=== PATIENT | female | born 1995 ===

== ENCOUNTER 2022-05-10 12:38 | Outpatient (RCR) | payer OTHER, SELFPAY ==
[2022-05-10] MEDS: RHO(D) IMMUNE GLOBULIN 300 MCG/2 ML SYRINGE IM (13:24)
== END 2022-08-07 23:59 | disposition home or self-care (01) ==
LOC: ANHLAB 12:38
PROVIDERS: Visit Provider Obstetrics & Gynecology
DX: Z29.13 Encounter for prophylactic Rho(D) immune globulin (principal); O36.0190 Maternal care for anti-D [Rh] antibodies, unspecified trimester, not applicable or unspecified; Z3A.00 Weeks of gestation of pregnancy not specified
CPT/HCPCS: 36415; 85461; 86850; 86900; 86901; 90384; 96372; J2790

== ENCOUNTER 2022-07-04 17:51 | Inpatient (IN) | payer OTHER, SELFPAY ==
[2022-07-04] VITALS (19 sets, daily range): BP systolic 95–120; BP diastolic 42–68; PULSE 75–100; RESP 16; TEMP 36.3–36.4; O2SAT 98–99; BMI 34.0
--- NOTE | 2022-07-04 18:36 | LDADM ---
This patient, Gume Gaytan, was admitted to Labor/Delivery/Recovery 103 on 07/04/22 at 17:51. Plans for labor, pain management and were discussed with patient. Patient/family oriented to hospital policies and general routines including ID bracelet, bed and alarms, visiting hours, pain management, procedures, bathroom and other care routines, personal items, smoking policy, room service/diet and guest tray routines, security routines, and visiting hours. Patient/Family are encouraged to report perceived risks to care and to ask questions if they do not understand what they are told or what they should do. See OBIX for further documentation.
[2022-07-04 22:03] LABS: Basophils Absolute Auto 0.1 K/mm3 (0.0-0.1); Basophils Percent Auto 0.6 % (0.2-1.2); Eosinophils Absolute Auto 0.1 K/mm3 (0-0.3); Eosinophils Percent Auto 0.6 % (0-4.4); Hematocrit 32.5 % (37.0-47.0); Hemoglobin 10.6 g/dL (12.0-15.0); Immature Granulocyte Absolute 0.04 K/mm3 (0.00-0.031); Immature Granulocyte Percent A 0.5 % (0-0.5); Lymphocytes Percent Auto 47.4 % (18.3-44.2); Mean Corpuscular HGB Conc 32.6 g/dl (32-36); Mean Corpuscular Hemoglobin 28.6 pg (26-34); Mean Corpuscular Volume 87.6 fl (80-100); Mean Platelet Volume 9.6 fl (7.4-10.4); Monocytes Absolute Auto 0.4 K/mm3 (0.1-0.6); Monocytes Percent Auto 5.3 % (2.6-8.5); Neutrophils Absolute Auto 3.8 K/mm3 (1.3-6.7); Neutrophils Percent Auto 45.6 % (45.5-73.1); Platelet Count Result 150 k/mm3 (150-375); Red Blood Count 3.71 M/mm3 (4.2-5.4); Red Cell Distribution Width 13.4 % (11.5-14.5); White Blood Count 8.2 K/mm3 (4.5-10.0)
[2022-07-04 22:35] LABS: Atypical Lymphocytes Present; Platelet Estimate Adequate (Adequate); Schistocytes None Seen (NORMAL)
[2022-07-05] VITALS (256 sets, daily range): BP systolic 56–144; BP diastolic 27–89; PULSE 63–204; RESP 12–22; TEMP 36.3–37.3; O2SAT 97–100
--- NOTE | 2022-07-05 06:08 | PM.IMHP ---
H&P: HPI History of Present Illness Date/Time: 07/05/22 06:08 Chief Complaint: Postdates for induction Narrative: this is a 27-year-old 3 para 2 2 previous C-sections cysts on the attempted vaginal delivery after . She is 40 and 5 7th weeks gestation. Her cervix is unfavorable the marked increase risks have been explained to the patient in full and she and her burned her wish to proceed with induction PMFSH Family History Family History Grandparent Uterine cancer Mother Asthma Social History Social History Smoking status: Never smoker Substance use: never Lack of Transportation: No Lack of Food: Never True Current Housing: I Have Housing Concerned About Future Housing: No Difficulty Paying Gas/Electric Bills: No Difficulty Paying for Meds: No Currently Unemployed: No Education: Bachelor's Degree Difficulty w/ Childcare or Family Care: No Spiritual care concerns: No Meds Home Medications and Allergies Allergies Allergy/AdvReac Type Severity Reaction Status Date / Time No Known Allergies Allergy Verified 05/31/22 13:27 Vital Signs Vital Signs - 24 hr 07/04/22 18:35 07/04/22 19:02 07/04/22 19:15 Temperature 97.4 F L Pulse Rate 93 85 Respiratory Rate 16 Blood Pressure 120/68 117/60 Pulse Oximetry 98 Oxygen Delivery Room Air 07/04/22 19:20 07/04/22 19:25 07/04/22 19:30 Temperature Pulse Rate Respiratory Rate Blood Pressure Pulse Oximetry 98 98 98 Oxygen Delivery 07/04/22 19:35 07/04/22 19:40 07/04/22 19:45 Temperature Pulse Rate Respiratory Rate Blood Pressure Pulse Oximetry 98 98 99 Oxygen Delivery 07/04/22 19:50 07/04/22 19:55 07/04/22 20:00 Temperature Pulse Rate Respiratory Rate Blood Pressure Pulse Oximetry 99 99 99 Oxygen Delivery 07/04/22 20:05 07/04/22 20:10 07/04/22 20:15 Temperature Pulse Rate Respiratory Rate Blood Pressure Pulse Oximetry 99 98 98 Oxygen Delivery 07/04/22 20:20 07/04/22 20:25 07/04/22 20:30 Temperature 97.5 F L Pulse Rate 90 Respiratory Rate 16 Blood Pressure 102/42 L Pulse Oximetry 99 99 99 Oxygen Delivery 07/04/22 20:31 07/04/22 20:34 07/05/22 00:31 Temperature Pulse Rate 88 81 Respiratory Rate Blood Pressure 95/47 L 118/56 L Pulse Oximetry 98 Oxygen Delivery 07/05/22 00:32 07/05/22 00:36 07/05/22 00:41 Temperature 97.4 F L Pulse Rate 78 Respiratory Rate 12 Blood Pressure 113/70 Pulse Oximetry 98 98 Oxygen Delivery 07/05/22 00:46 07/05/22 00:51 07/05/22 00:56 Temperature Pulse Rate Respiratory Rate Blood Pressure Pulse Oximetry 99 98 99 Oxygen Delivery 07/05/22 05:09 07/05/22 05:10 07/05/22 05:11 Temperature 97.3 F L Pulse Rate 68 Respiratory Rate 12 Blood Pressure 123/61 Pulse Oximetry 100 100 Oxygen Delivery 07/05/22 05:16 07/05/22 05:21 07/05/22 05:26 Temperature Pulse Rate Respiratory Rate Blood Pressure Pulse Oximetry 98 98 99 Oxygen Delivery 07/05/22 05:31 07/05/22 05:36 07/05/22 05:41 Temperature Pulse Rate Respiratory Rate Blood Pressure Pulse Oximetry 98 98 99 Oxygen Delivery 07/05/22 05:46 07/05/22 05:51 07/05/22 05:56 Temperature Pulse Rate Respiratory Rate Blood Pressure Pulse Oximetry 98 99 99 Oxygen Delivery 07/05/22 06:01 07/05/22 06:06 Temperature Pulse Rate Respiratory Rate Blood Pressure Pulse Oximetry 100 100 Oxygen Delivery Exam Const: General: cooperative, healthy appearing, comfortable and overweight Orientation/consciousness: oriented to person, oriented to place and oriented to time HENMT: Head: normal to inspection Resp: Effort & Inspection: normal respiratory effort Cardio
[2022-07-05] MEDS: AMPICILLIN 2 GM/NS 100 ML 2 GM/100 ML BAG IVPB (06:29)
[2022-07-05] MEDS: OXYTOCIN 30 UNITS/NS 500 ML 30 UNITS/500 ML BAG IV CONT (06:29)
[2022-07-05] MEDS: LACTATED RINGERS 1,000 ML 125 ML IV CONT ×4 (06:29→14:41)
[2022-07-05] MEDS: AMPICILLIN 1 GM/NS 50 ML 1 GM/50 ML BAG IVPB ×2 (10:39→14:41)
[2022-07-05] MEDS: ONDANSETRON INJ 4 MG/2 ML VIAL IV PUSH (11:28)
--- NOTE | 2022-07-05 12:04 | WPDANESEPP ---
Anes - Eval Pre Procedure Procedure: Labor Epidural Date/Time: 07/05/22 12:04 Surgeon: Brannon Preop Diagnosis: Labor Pain Pre Op Diagnosis: Induction of Labor Patient Data Age: 27 Gender: F Height: 1.63 m Weight: 90 kg Last Vital Signs Temp 37.1 C 07/05/22 06:30 Pulse 84 07/05/22 12:03 Resp 12 07/05/22 05:10 BP 144/58 H 07/05/22 12:03 Pulse Ox 99 07/05/22 12:04 O2 Del Method Room Air 07/04/22 18:35 Allergies Allergy/AdvReac Type Severity Reaction Status Date / Time No Known Allergies Allergy Verified 05/31/22 13:27 Laboratory Tests 07/04/22 07/04/22 07/04/22 18:52 18:52 21:55 WBC 8.2 K/mm3 K/mm3 (4.5-10.0) RBC 3.71 M/mm3 L M/mm3 (4.2-5.4) Hgb 10.6 g/dL L g/dL (12.0-15.0) Hct 32.5 % L % (37.0-47.0) MCV 87.6 fl fl (80-100) MCH 28.6 pg pg (26-34) MCHC 32.6 g/dl g/dl (32-36) RDW 13.4 % % (11.5-14.5) Plt Count 150 k/mm3 k/mm3 (150-375) MPV 9.6 fl fl (7.4-10.4) Immature Gran % (Auto) 0.5 % % (0-0.5) Neut % (Auto) 45.6 % % (45.5-73.1) Lymph % (Auto) 47.4 % H % (18.3-44.2) [place] % (Auto) 5.3 % % (2.6-8.5) Eos % (Auto) 0.6 % % (0-4.4) Baso % (Auto) 0.6 % % (0.2-1.2) Lymph # (Auto) 3.90 K/mm3 H K/mm3 (0.9-3.2) [place] # (Auto) 0.4 K/mm3 K/mm3 (0.1-0.6) Eos # (Auto) 0.1 K/mm3 K/mm3 (0-0.3) Baso # (Auto) 0.1 K/mm3 K/mm3 (0.0-0.1) Abs Immat Gran (auto) 0.04 K/mm3 H K/mm3 (0.00-0.031) Absolute Neuts (auto) 3.8 K/mm3 K/mm3 (1.3-6.7) Absolute Nucleated RBC 0.0 K/mm3 K/mm3 (0.0-0.012) Nucleated RBC % 0.0 % % (0.0-0.2) Atypical Lymphocytes Present Platelet Estimate Adequate (Adequate) Schistocytes None seen (NORMAL) RPR Pending Blood Type B Negative Antibody Screen Positive Antibody Identification Inconclusive Antigen Identification Cancelled CE, IgG Interpret Not Performed CE, Poly Interpret Negative CE, Complement Interp Not Performed : gestational age (, JEANNINE 06/30/22) Patient hx anesthesia problems: none Family hx anesthesia problems: none Results Review: All pre-operative results and documents have been reviewed as part of the pre-operative evaluation. [facility] Family History Family History Grandparent Uterine cancer Mother Asthma Social History Social History Smoking status: Never smoker Substance use: never Lack of Transportation: No Lack of Food: Never True Current Housing: I Have Housing Concerned About Future Housing: No Difficulty Paying Gas/Electric Bills: No Difficulty Paying for Meds: No Currently Unemployed: No Education: Bachelor's Degree Difficulty w/ Childcare or Family Care: No Spiritual care concerns: No Exam Day of Procedure 07/05/22 12:04 Patient weight: normal Heart: regular rate and rhythm Lungs: normal air movement Airway: Mallampati scale class II Neurological: alert and oriented Other findings: 2 previous c sections (furthest dilated was 7cm)
--- NOTE | 2022-07-05 12:39 | PM.OBPNLAB ---
Pain Control Date/time seen: 07/05/22 12:39 Pain control: tolerating well and epidural Pelvic Exam Dilation (cm): 2 Effacement (%): 80 station: -1 Amniotic membrane status: Leaking Comments: iupc placed
[2022-07-05] MEDS: SODIUM CHLORIDE 0.9% IV 300 ML 600 ML I-UTERINE (13:19)
--- NOTE | 2022-07-05 15:20 | PM.OBPNLAB ---
Pain Control Date/time seen: 07/05/22 15:20 Pain control: tolerating well and epidural Pelvic Exam Dilation (cm): 2 Effacement (%): 80 station: -1 Amniotic membrane status: Leaking Comments: no change in cervix. fhts now better. offered section but still unwiling. continue monitoring closely
--- NOTE | 2022-07-05 16:55 | PM.OBPNLAB ---
Pain Control Date/time seen: 07/05/22 16:55 I just assumed call for Dr. Jignesh Baptiste. He and I have reviewed the patient's case and condition several times over the course of the day today. Pain under good control. NST: Category 2 TOCO: contractions every 2-5 min ABD soft, nontender, gravid EXT nontender A: IUP at term. Prior x 2. Abnormal heart rate tracing remote from delivery. P: Offered repeat . She understands risks of surgery to include risks of anesthesia, risks of pain, infection, bleeding, blood products, thromboembolic phenomena and damage to adjacent structures such as bowel, bladder, ureters, blood vessels and nerves. She understands all these risks and elects to proceed with surgery. Pelvic Exam Dilation (cm): 2 Effacement (%): 80 station: -1 Amniotic membrane status: Leaking
[2022-07-05] MEDS: ceFAZolin 2 GM/D5W 50 ML 2 GM/50 ML BAG IVPB (17:10)
--- NOTE | 2022-07-05 17:58 | PM.OBPRVD ---
OB - Delivery Note Procedure Delivery date: 07/05/22 Procedure: Procedures Operation Date: 07/05/22 17:00 <No data on this case meets the specified criteria> Repeat low transverse delivery Events: Positive Group B Strep (GBS) and Previous Delivery Intrapartal Events: Arrest of Dilation and Non-Reassuring Status Induction method: Per Pitocin Protocol Delivery augmentation: Rupture of Membranes and Pitocin Delivery monitor: External FHT, External Uterine and Internal Uterine Route of delivery: Specimen: Yes (cord blood, placenta) Quantitative Blood Loss (ml): 835 Anesthesia type: Epidural Disposition: PACU Complications: None Narrative: The patient was taken to the operating room where she was prepared and draped in the usual sterile fashion in dorsal supine position with a leftward tilt. She received cefazolin and azithromycin preoperatively. Spinal anesthesia was found to be adequate. A Pfannenstiel skin incision was made along the previous scar line and was carried through to the underlying layer of the fascia. The fascia was incised in the midline and the incision was extended laterally. The fascia was dissected free of the underlying rectus muscles. The rectus muscles were in the midline. The peritoneum was identified, tented up and entered sharply. The peritoneal incision was extended superiorly and inferiorly with good visualization of the bladder. The bladder blade was placed. The vesicouterine peritoneum was identified, tented up and entered sharply. The incision was extended laterally and the bladder flap was developed. The bladder blade was replaced. The uterus was then incised sharply in a transverse fashion along the lower uterine segment. The incision was extended laterally. The infant's head was delivered atraumatically to the sterile field, followed by the body. The nose and mouth were bulb suctioned. After a delay, the cord was clamped and cut. The infant was handed off the field. Cord blood was collected. The placenta was removed manually and was passed off the field. The uterus was exteriorized and cleared of all clots and debris. The uterine incision was reapproximated using 0 Monocryl in a running, locked fashion. Excellent hemostasis resulted as did excellent reapproximation of the normal anatomy. The uterus was returned the abdomen. The pelvis was irrigated copiously with warmed normal saline. Rigorous hemostasis was assured. The fascial layer was reapproximated using 0 Vicryl in a running fashion. The skin was closed with a running, subcuticular stitch of 4 0 Vicryl. Dermaflex was applied externally. Sponge, lap, needle and instrument counts were correct. The patient was taken to the recovery room in stable condition. The went to the nursery in stable condition. I was present and scrubbed the entire procedure. Baby Date of : 07/05/22 Time of : 17:29 Weeks of gestation at delivery: 40 Infant gender: Male Weight (pounds): 7 Weight (ounces): 4 presentation: vertex Placenta delivery description: Manual Removal and Normal Configuration Cord Vessel Description: 3 Vessels and Delayed Cord Clamping score one minute: 8 score five minutes: 9
--- NOTE | 2022-07-05 18:01 | P.DS_ITS ---
DS: Admitting Diagnosis Discharge Date 07/08/22 Admitting Diagnosis IUP at 40 5/7 weeks Prior x 2 GBS colonization DS: Discharge Diagnosis Discharge Diagnosis (1) Term : Code(s): Z34.90 - Encounter for supervision of normal , unspecified, unspecified trimester Status: Acute (2) delivery delivered: Code(s): O82 - Encounter for delivery without indication Status: Acute (3) GBS (group B Streptococcus carrier), +RV culture, currently : Code(s): O99.820 - Streptococcus B carrier state complicating Status: Acute OB - DS: Summary OB Procedures : NST OB Procedures Intrapartum: OB Procedures: : None Peripartum Data Procedures: Procedures Operation Date: 07/05/22 17:00 <No data on this case meets the specified criteria> Repeat LTCS Time Spent with Patient Time attestation: Total time spent providing and/or coordinating discharge services: DS: Data Data Completed and Pending Labs on day of discharge: Labs from last 24 hours 07/04/22 07/04/22 07/04/22 21:55 18:52 18:52 WBC 8.2 RBC 3.71 L Hgb 10.6 L Hct 32.5 L MCV 87.6 MCH 28.6 MCHC 32.6 RDW 13.4 Plt Count 150 MPV 9.6 Immature Gran % (Auto) 0.5 Neut % (Auto) 45.6 Lymph % (Auto) 47.4 H [place] % (Auto) 5.3 Eos % (Auto) 0.6 Baso % (Auto) 0.6 Lymph # (Auto) 3.90 H [place] # (Auto) 0.4 Eos # (Auto) 0.1 Baso # (Auto) 0.1 Abs Immat Gran (auto) 0.04 H Absolute Neuts (auto) 3.8 Absolute Nucleated RBC 0.0 Nucleated RBC % 0.0 Atypical Lymphocytes Present Platelet Estimate Adequate Schistocytes None seen RPR Pending Blood Type B Negative Antibody Screen Positive Antibody Identification Inconclusive Antigen Identification Cancelled CE, IgG Interpret Not Performed CE, Poly Interpret Negative CE, Complement Interp Not Performed Discharge Plan Discharge Attending physician on discharge: Pavel Alvarenga Discharging Clinician: Marcelino Gilliam Patient Disposition: Home, Self-Care Activity: may shower, may drive after 2 weeks and pelvic rest Diet: regular Wound Care Instructions: incision open to air Discharge Instructions: Call or return if temperature above 100.4? F, increased abdominal pain, increased vaginal bleeding or any new problems. Stand Alone Forms: General Discharge Information Follow-up/Referrals: Pavel Alvarenga MD [Physician] - 4 Weeks Discharge Medications: New ibuprofen 600 mg tablet 600 mg PO Q6H PRN (Reason: cramps) Qty: 30 0RF hydrocodone-acetaminophen 5-325 mg tablet 1 - 2 tablet PO Q6H PRN (Reason: pain) Qty: 30 0RF ferrous sulfate 325 mg (65 mg iron) tablet 325 mg PO DAILY Qty: 30 0RF Date of admission: 07/04/22 17:51 Primary Care Provider: UNKNOWN,DOCTOR Admitting Provider: Pavel Alvarenga Attending physician on admission: Pavel Alvarenga Condition: Stable
[2022-07-05] MEDS: KETOROLAC 30 MG/ML VIAL (*BKC) IV PUSH (18:56)
--- NOTE | 2022-07-05 20:29 | OBPPTRN ---
Patient transferred to post room #282 via ( stretcher ). Support person present. Oriented to unit, room, information board, rooming in, admission packet and security measures. Patient verbalizes understanding.
[2022-07-05] MEDS: diphenhydrAMINE HCl INJ 50 MG/ML VIAL 25 MG IV PUSH (21:25)
[2022-07-06 00:45] VITALS: BP 108/61; PULSE 85; RESP 18; TEMP 37.2; O2SAT 97
[2022-07-06 04:30] VITALS: BP 100/56; PULSE 86; RESP 18; TEMP 37.2; O2SAT 98
[2022-07-06 04:54] LABS: Basophils Absolute Auto 0.1 K/mm3 (0.0-0.1); Basophils Percent Auto 0.6 % (0.2-1.2); Eosinophils Percent Auto 0.2 % (0-4.4); Hematocrit 27.7 % (37.0-47.0); Hemoglobin 8.9 g/dL (12.0-15.0); Immature Granulocyte Absolute 0.03 K/mm3 (0.00-0.031); Immature Granulocyte Percent A 0.3 % (0-0.5); Lymphocytes Absolute Auto 3.23 K/mm3 (0.9-3.2); Lymphocytes Percent Auto 33.9 % (18.3-44.2); Mean Corpuscular HGB Conc 32.1 g/dl (32-36); Mean Corpuscular Hemoglobin 28.6 pg (26-34); Mean Corpuscular Volume 89.1 fl (80-100); Mean Platelet Volume 9.5 fl (7.4-10.4); Monocytes Absolute Auto 0.5 K/mm3 (0.1-0.6); Neutrophils Absolute Auto 5.7 K/mm3 (1.3-6.7); Platelet Count Result 108 k/mm3 (150-375); Red Blood Count 3.11 M/mm3 (4.2-5.4); Red Cell Distribution Width 13.6 % (11.5-14.5); White Blood Count 9.5 K/mm3 (4.5-10.0)
[2022-07-06] MEDS: IBUPROFEN 600 MG TABLET PO ×2 (04:56→15:03)
[2022-07-06] MEDS: HYDROcodone/acetaminophen (*CRX) 5-325 MG TABLET 1 TAB PO ×4 (04:56→19:00)
[2022-07-06 05:30] LABS: Atypical Lymphocytes Present
[2022-07-06 05:31] LABS: Platelet Estimate Adequate (Adequate)
[2022-07-06 08:44] VITALS: BP 100/53; PULSE 76; RESP 18; TEMP 36.8; O2SAT 98
[2022-07-06] MEDS: DOCUSATE SODIUM 100 MG CAPSULE PO ×2 (08:44→17:36)
[2022-07-06] MEDS: POLYSACCHARIDE IRON COMPLEX 150 MG CAPSULE PO ×2 (08:44→17:35)
[2022-07-06] MEDS: MULTIVIT/MIN/PREN/FOL AC/IRON TABLET 1 TAB PO (08:44)
--- NOTE | 2022-07-06 09:35 | PM.OBPNVD ---
OB - PN: Subj Subjective Date/time seen: 07/06/22 09:35 Narrative: Pain OK. Tolerating diet. OB - PN: Obj Data Labs 07/06/22 04:48 Labs: Laboratory Results - last 24 hr 07/06/22 04:48 WBC 9.5 RBC 3.11 L Hgb 8.9 L Hct 27.7 L MCV 89.1 MCH 28.6 MCHC 32.1 RDW 13.6 Plt Count 108 L MPV 9.5 Immature Gran % (Auto) 0.3 Neut % (Auto) 60.0 Lymph % (Auto) 33.9 [place] % (Auto) 5.0 Eos % (Auto) 0.2 Baso % (Auto) 0.6 Lymph # (Auto) 3.23 H [place] # (Auto) 0.5 Eos # (Auto) 0.0 Baso # (Auto) 0.1 Abs Immat Gran (auto) 0.03 Absolute Neuts (auto) 5.7 Absolute Nucleated RBC 0.0 Nucleated RBC % 0.0 Atypical Lymphocytes Present Platelet Estimate Adequate Schistocytes Not Reportable OB - PN A/P Plan Comments: A: POD#1, doing well. P: Routine care. Exam Narrative: AVSS I/O OK ABD soft, nontender, fundus firm. Incision c/d/i. EXT nontender
--- NOTE | 2022-07-06 10:55 | WPDANLDPN2 ---
Anes-Prog Note L&D Date/Time: 07/06/22 10:55 Comfortable throughout: labor and section Neuraxial method: epidural Epidural/Spinal procedure site: clean & non-tender Neuro status: Neuro function grossly intact. Cardiovascular status: normal Respiratory status: normal Airway patency: baseline Mental status: baseline Post-Op hydration status: normal Vital Signs: Last Vital Signs Temp 36.8 C 07/06/22 08:44 Pulse 76 07/06/22 08:44 Resp 18 07/06/22 08:44 BP 100/53 L 07/06/22 08:44 Pulse Ox 98 07/06/22 08:44 O2 Del Method Room Air 07/06/22 08:44 Pain score (VAS): 0 I/O: Intake & Output 07/05/22 07/06/22 07/06/22 23:59 07:59 15:59 Intake Total 300 200 Output Total 2280 736 9045 Balance -835 150 -1350 Post-procedural complaints: none Patient feedback: Patient satisfied with anesthetic care.
--- NOTE | 2022-07-06 10:56 | WPDANLDNPN2 ---
Anes-Prog Note L&D-Neuraxial Date/Time: 07/06/22 10:56 Neuraxial medications: epidural PF morphine Opiod-related complaints: none Patient feedback: Patient satisfied with post-operative pain management.
[2022-07-06 14:20] VITALS: BP 109/61; PULSE 95; RESP 18; TEMP 36.7; O2SAT 98
--- NOTE | 2022-07-06 15:00 | PC.NURSE ---
PT introductions made and plan of care discussed per post op c section, pain management, breast feeding, daily care activities . PT received such instructions per one to one discussion, mom baby care guide and demonstrations this shift. PT and spouse both recipients of such instructions and no barriers to learning identified at this time. PT verbalized understanding of such care.
[2022-07-06] MEDS: SIMETHICONE 80 MG TAB.CHEW PO (15:20)
[2022-07-06 18:30] VITALS: BP 105/59; PULSE 90; RESP 20; TEMP 36.5; O2SAT 99
[2022-07-07] MEDS: HYDROcodone/acetaminophen (*CRX) 5-325 MG TABLET 1 TAB PO ×4 (00:21→20:44)
[2022-07-07] MEDS: IBUPROFEN 600 MG TABLET PO ×4 (02:35→20:43)
[2022-07-07 08:30] VITALS: BP 108/59; PULSE 79; RESP 16; TEMP 36.4; O2SAT 100
[2022-07-07] MEDS: MULTIVIT/MIN/PREN/FOL AC/IRON TABLET 1 TAB PO (08:30)
[2022-07-07] MEDS: DOCUSATE SODIUM 100 MG CAPSULE PO ×2 (08:30→16:55)
[2022-07-07] MEDS: POLYSACCHARIDE IRON COMPLEX 150 MG CAPSULE PO ×2 (08:30→16:55)
[2022-07-07] MEDS: SIMETHICONE 80 MG TAB.CHEW PO ×2 (08:32→20:44)
--- NOTE | 2022-07-07 09:09 | PM.OBPNVD ---
OB - PN: Subj Subjective Date/time seen: 07/07/22 09:09 Narrative: Pain OK. Tolerating diet. OB - PN: Obj Data Labs 07/06/22 04:48 OB - PN A/P Plan Comments: A: POD#2, doing well. P: Routine care. She plans to go home tomorrow. Exam Narrative: AVSS I/O OK ABD soft, nontender, fundus firm. Incision c/d/i. EXT nontender
[2022-07-07 21:17] VITALS: BP 107/50; PULSE 75; RESP 16; TEMP 36.8; O2SAT 99
[2022-07-08] MEDS: HYDROcodone/acetaminophen (*CRX) 5-325 MG TABLET 1 TAB PO ×2 (01:05→07:33)
[2022-07-08] MEDS: IBUPROFEN 600 MG TABLET PO (07:32)
[2022-07-08 08:00] VITALS: PULSE 63; RESP 16; O2SAT 100
[2022-07-08 08:10] VITALS: BP 107/55; PULSE 63; RESP 16; TEMP 37.1; O2SAT 100
--- NOTE | 2022-07-08 08:44 | PM.OBPNVD ---
OB - PN: Subj Subjective Date/time seen: 07/08/22 08:44 Narrative: Pain OK. Tolerating diet. Would like to go home. OB - PN: Obj Data Labs 07/06/22 04:48 OB - PN A/P Plan Comments: A: POD#3, doing well. P: Home to f/u 4 weeks. Exam Narrative: AVSS ABD soft, nontender, fundus firm. Incision c/d/i. EXT nontender
[2022-07-08] MEDS: POLYSACCHARIDE IRON COMPLEX 150 MG CAPSULE PO (09:18)
[2022-07-08] MEDS: DOCUSATE SODIUM 100 MG CAPSULE PO (09:18)
[2022-07-08] MEDS: MULTIVIT/MIN/PREN/FOL AC/IRON TABLET 1 TAB PO (09:18)
[2022-07-08 09:21] LABS: Rapid Plasma Reagin Non-Reactive (NonReactive)
--- NOTE | 2022-07-08 10:14 | PC.NURSE ---
Patient viewed the discharge video Mother & Baby Care, The First Two Weeks . Patient was given the opportunity and encouraged to ask questions. Patient verbalized understanding of information shared and has been given the mother/baby guide for home reference.
--- NOTE | 2022-07-08 13:01 | PC.NURSE ---
Mother verbalizes she is able to independently latch with appropriate positioning/alignment. She denies any nipple discomfort and is responsively . is currently meeting outcomes for weight, output, jaundice and feeding frequencies of 8-12 times in 24 hours. Mother declines any additional assistance/education at this time. Mother is encouraged to call for assistance if her doesn?t latch or there is discomfort with latching. Mother voiced understanding of information shared and the mom reminded of the mom/baby guide for an additional resource. Reported to the primary RN.
[2022-07-09 10:22] VITALS: BP 122/66; PULSE 87; RESP 20; TEMP 37.2; O2SAT 99
== END 2022-07-08 12:12 | disposition home or self-care (01) | DRG 540 ==
LOC: ANHLDR 07-05 18:03 → ANHOB2 07-08 10:27 → ANHLDR 07-09 09:56 → ANHOB2 07-09 09:56
PROVIDERS: Admitting Provider Obstetrics & Gynecology; Visit Provider Obstetrics & Gynecology
PROC: 10D00Z1 Extraction of Products of Conception, Low, Open Approach (ICD-10-PCS; CPT 59514; principal; 2022-07-05 17:00)
DX: O62.0 Primary inadequate contractions (principal); O34.219 Maternal care for unspecified type scar from previous cesarean delivery; O76 Abnormality in fetal heart rate and rhythm complicating labor and delivery; O99.824 Streptococcus B carrier state complicating childbirth; O77.0 Labor and delivery complicated by meconium in amniotic fluid; Z3A.40 40 weeks gestation of pregnancy; Z37.0 Single live birth
CPT/HCPCS: 36415; 85025; 86592; 86850; 86880; 86900; 86901; 86902; 88307; A9270; J0290; J0456; J0690; J1200; J1885; J2274; J2370; J2405; J2590; J2795; J7030; J7120